=== PATIENT | female | born 1975 | race African-American/Black ===

== ENCOUNTER 2017-03-18 14:41 | Emergency (ER) | payer OTHER ==
[~2017-03-18] VITALS: Ht 147.3 cm; Wt 90.7 kg
[~2017-03-18 14:41] MED LIST: CALCIUM + D3 E1 EACH PO; CALCIUM 500 MG1 EACH PO; CALCIUM500 M4 PO; ENDOCET 5-3251 EACH PO; FIORICET,ESG1 TABLET PO; HYDROCODON-ACE1 EAC7 PO; IBUPROFEN800 MG PO; IRON325 M1 PO; LABETALOL HCL100 MG PO; MOTRIN600 MG PO; MOTRIN800 MG PO; Motrin PO; PRENATAL FORMU1 EAC3 PO; PRENATAL TABLE1 EAC3 PO; PREPARATION H C51 G1 PR; TORADOL10 MG PO; TRANDATE100 MG PO; VICODIN,LORT1 TABLET PO; ZOFRAN4 MG PO
[2017-03-18 16:52] LABS: HEMATOCRIT 33.8 % (36.0-46.0); MCH 25.7 PG (29.0-34.0); MCHC 33.1 G/DL (30.0-36.0); MCV 77.5 FL (83-99); MEAN PLAT.VOLUME 10.7 uM^3 (9.5-12.4); NRBC (%) 0.2 /100 WBC (0-0); PLATELET COUNT 243 K/uL (156-360); RBC DIS.WIDTH-CV 14.3 % (11.8-14.6); RED BLOOD COUNT 4.36 M/uL (3.80-5.20); WHITE BLOOD COUNT 9.3 K/uL (4.1-10.2)
[2017-03-18 17:03] LABS: CHLORIDE 107 mEq/L (99-109); POTASSIUM 3.3 mEq/L (3.7-5.4); SODIUM 138 mEq/L (136-147)
[2017-03-18 17:06] LABS: GLUCOSE 114 mg/dL (70-99)
[2017-03-18 17:07] LABS: ANION GAP 7 MEQ/L (2-14); TOTAL BILIRUBIN 0.3 mg/dL (0.0-1.0)
[2017-03-18 17:08] LABS: SERUM ETHYL ALCOHOL < 10 mg/dL
[2017-03-18 17:09] LABS: ALKALINE PHOSPHATASE 92 IU/L (3-129); GFR ESTIMATE (CALCULATED) > 59 mL/min/
[2017-03-18 17:10] LABS: UREA NITROGEN (BUN) 6 mg/dL (9-23)
[2017-03-18 17:18] LABS: QUANTITATIVE HCG 2656.3 MIU/ML
[2017-03-18 17:19] LABS: TROP-I INTERPRETATION NEGATIVE; TROPONIN-I < 0.01 ng/mL (0.0-0.30)
[2017-03-18 18:27] LABS: AMPHETAMINE NEGATIVE (500 ng/mL); BARBITURATES NEGATIVE (200 ng/mL); BENZODIAZEPINES NEGATIVE (150 ng/mL); COCAINE NEGATIVE (150 ng/mL); INTERNAL CONTROLS VALID? YES; METHADONE NEGATIVE (200 ng/mL); METHAMPHETAMINE NEGATIVE (500 ng/mL); OPIATES (MORPHINE) NEGATIVE (100 ng/mL); OXYCODONE NEGATIVE (100 ng/mL); PHENCYCLIDINE NEGATIVE (25 ng/mL); PROPOXYPHENE NEGATIVE (300 ng/mL); THC CANNABINOIDS NEGATIVE (50 ng/mL); TRICYCLIC ANTIDEPRESSANTS NEGATIVE (300 ng/mL)
[2017-03-18] MEDS ORDERED: REGLAN10 MG PO (19:10)
[2017-03-18] MEDS ORDERED: TYLENOL REGULA325 MG PO (19:10)
[2017-03-18 19:58] VITALS: BP 149/67
== END 2017-03-18 19:58 | disposition home or self-care (01) ==
LOC: EME 14:41
PROVIDERS: Emergency Medicine
DX: O99.351 Diseases of the nervous system complicating pregnancy, first trimester (principal); G43.009 Migraine without aura, not intractable, without status migrainosus; O10.011 Pre-existing essential hypertension complicating pregnancy, first trimester; O99.511 Diseases of the respiratory system complicating pregnancy, first trimester; J32.3 Chronic sphenoidal sinusitis; O99.341 Other mental disorders complicating pregnancy, first trimester; F32.9 Major depressive disorder, single episode, unspecified; Z3A.00 Weeks of gestation of pregnancy not specified
CPT/HCPCS: 70496; 80053; 84443; 84484; 84702; 85027; 90839; 93005; 99281; 99285; G0480; J1200; J1885; J2765; J7030

== ENCOUNTER 2017-10-05 16:23 | Outpatient (CLI) | payer OTHER ==
[~2017-10-05] VITALS: Ht 149.9 cm; Wt 82.0 kg
[~2017-10-05 16:23] MED LIST changes: +REGLAN10 MG PO; +TYLENOL REGULA325 MG PO
[2017-10-05] MEDS ORDERED: LABETALOL HCL200 MG PO (16:59)
[2017-10-05] MEDS ORDERED: ASPIR 8181 M1 PO (17:00)
[2017-10-05] MEDS ORDERED: LAMICTAL25 MG PO (17:01)
[2017-10-05] MEDS ORDERED: PAROXETINE HCL10 MG PO (17:02)
[2017-10-05 17:05] VITALS: BP 164/95
[2017-10-05 17:22] VITALS: BP 110/55
[2017-10-05 17:37] VITALS: BP 130/64
[2017-10-05 18:21] LABS: BASOPHIL (%) 0.3 % (0-1); EOSINOPHIL (%) 2.4 % (0-5); EOSINOPHIL COUNT 0.2 K/uL (0-0.3); HEMATOCRIT 28.9 % (36.0-46.0); HEMOGLOBIN 9.9 G/DL (11.9-15.5); IMMATURE GRANULOCYTE (%) 0.8 % (0.0-0.7); LYMPHOCYTE (%) 26.2 % (15-42); LYMPHOCYTE COUNT 2.3 K/uL (1.0-2.8); MCHC 34.3 G/DL (30.0-36.0); MCV 81.6 FL (83-99); MONOCYTE (%) 7.2 % (3-12); MONOCYTE COUNT 0.6 K/uL (0-0.8); NEUTROPHIL (%) 63.1 % (45-76); NEUTROPHIL COUNT 5.6 K/uL (1.8-6.4); PLATELET COUNT 174 K/uL (156-360); RBC DIS.WIDTH-CV 14.4 % (11.8-14.6); RBC DIS.WIDTH-SD 41.8 % (39-53); RED BLOOD COUNT 3.54 M/uL (3.80-5.20); WHITE BLOOD COUNT 8.8 K/uL (4.1-10.2)
[2017-10-05 18:25] LABS: APPEARANCE CLEAR ((CLEAR)); BILIRUBIN NEGATIVE; BLOOD NEGATIVE; COLOR YELLOW ((YELLOW)); GLUCOSE (STRIP) NEGATIVE; KETONES 5; LEUKOCYTES NEGATIVE; NITRITE NEGATIVE; PROTEIN (STRIP) 30; SPECIFIC GRAVITY 1.019 (1.000-1.030); UCUL ADDED? NO
[2017-10-05 18:43] LABS: ALBUMIN 3.5 G/DL (3.2-4.8); ALKALINE PHOSPHATASE 141 IU/L (3-129); ALT (GPT) 8 IU/L (3-49); AST (GOT) 14 IU/L (2-34); CHLORIDE 105 MEQ/L (99-109); CREATININE 0.5 MG/DL (0.6-1.3); GFR ESTIMATE (CALCULATED) > 59 mL/min/; GLUCOSE 77 mg/dL (70-99); POTASSIUM 3.7 MEQ/L (3.7-5.4); SODIUM 138 MEQ/L (136-147); TOTAL BILIRUBIN 0.6 MG/DL (0.0-1.0); TOTAL PROTEIN 6.2 G/DL (6.4-8.3); UREA NITROGEN (BUN) 5 mg/dL (9-23); URIC ACID 5.7 mg/dL (3.1-9.2)
[2017-10-05 18:44] LABS: UR CREATININE CONCENTRATION 185.5 MG/DL
[2017-10-05 19:42] VITALS: BP 138/82
[2017-10-05 23:52] VITALS: BP 132/77
[2017-10-06 03:39] VITALS: BP 133/62
[2017-10-06 07:10] VITALS: BP 134/75
[2017-10-06 11:03] VITALS: BP 127/69
[2017-10-06 13:43] VITALS: BP 117/62
== END 2017-10-06 17:30 | disposition home or self-care (01) ==
LOC: LDRP-OP 16:23 → 2WEST 16:25 → LDRP-OP 12-20 15:20
PROVIDERS: Advanced Practice Midwife
DX: O16.3 Unspecified maternal hypertension, third trimester (principal); O41.03X0 Oligohydramnios, third trimester, not applicable or unspecified; Z3A.33 33 weeks gestation of pregnancy; O34.219 Maternal care for unspecified type scar from previous cesarean delivery; O09.523 Supervision of elderly multigravida, third trimester; O99.343 Other mental disorders complicating pregnancy, third trimester; F31.9 Bipolar disorder, unspecified; O99.013 Anemia complicating pregnancy, third trimester; D64.9 Anemia, unspecified
CPT/HCPCS: 59025; 76818; 80053; 81003; 82570; 84156; 84550; 85025; G0378; J0702; J7120

== ENCOUNTER 2017-10-30 08:38 | Inpatient (IN) | payer OTHER ==
[~2017-10-30] VITALS: Ht 152.4 cm; Wt 83.9 kg
[2017-10-30] VITALS (8 sets, daily range): BP systolic 128–164; BP diastolic 67–89
[~2017-10-30 08:38] MED LIST changes: +ASPIR 8181 M1 PO; +LABETALOL HCL200 MG PO; +LAMICTAL25 MG PO; +PAROXETINE HCL10 MG PO
[2017-10-30 09:30] LABS: BASOPHIL (%) 0.4 % (0-1); EOSINOPHIL (%) 4.5 % (0-5); EOSINOPHIL COUNT 0.3 K/uL (0-0.3); HEMATOCRIT 27.8 % (36.0-46.0); HEMOGLOBIN 9.9 G/DL (11.9-15.5); IMMATURE GRANULOCYTE (%) 0.9 % (0.0-0.7); LYMPHOCYTE (%) 24.2 % (15-42); LYMPHOCYTE COUNT 1.8 K/uL (1.0-2.8); MCH 28.2 PG (29.0-34.0); MCHC 35.6 G/DL (30.0-36.0); MCV 79.2 FL (83-99); MONOCYTE (%) 6.9 % (3-12); MONOCYTE COUNT 0.5 K/uL (0-0.8); NEUTROPHIL (%) 63.1 % (45-76); NEUTROPHIL COUNT 4.8 K/uL (1.8-6.4); PLATELET COUNT 159 K/uL (156-360); RBC DIS.WIDTH-CV 14.1 % (11.8-14.6); RBC DIS.WIDTH-SD 40.2 % (39-53); RED BLOOD COUNT 3.51 M/uL (3.80-5.20); WHITE BLOOD COUNT 7.6 K/uL (4.1-10.2)
[2017-10-30 11:08] LABS: AMPHETAMINE NEGATIVE (500 ng/mL); BARBITURATES NEGATIVE (200 ng/mL); BENZODIAZEPINES NEGATIVE (150 ng/mL); BUPRENORPHINE NEGATIVE (10 ng/mL); COCAINE NEGATIVE (150 ng/mL); METHADONE NEGATIVE (200 ng/mL); METHAMPHETAMINE NEGATIVE (500 ng/mL); OPIATES (MORPHINE) NEGATIVE (100 ng/mL); OXYCODONE NEGATIVE (100 ng/mL); PHENCYCLIDINE NEGATIVE (25 ng/mL); PROPOXYPHENE NEGATIVE (300 ng/mL); THC CANNABINOIDS NEGATIVE (50 ng/mL); TRICYCLIC ANTIDEPRESSANTS NEGATIVE (300 ng/mL)
[2017-10-31 03:10] VITALS: BP 119/67
[2017-10-31 04:41] LABS: BASOPHIL (%) 0.2 % (0-1); EOSINOPHIL (%) 0.5 % (0-5); EOSINOPHIL COUNT 0.1 K/uL (0-0.3); HEMATOCRIT 25.6 % (36.0-46.0); HEMOGLOBIN 9.3 G/DL (11.9-15.5); IMMATURE GRANULOCYTE (%) 0.7 % (0.0-0.7); LYMPHOCYTE (%) 23.1 % (15-42); LYMPHOCYTE COUNT 2.7 K/uL (1.0-2.8); MCH 28.6 PG (29.0-34.0); MCHC 36.3 G/DL (30.0-36.0); MCV 78.8 FL (83-99); MONOCYTE (%) 7.4 % (3-12); MONOCYTE COUNT 0.9 K/uL (0-0.8); NEUTROPHIL (%) 68.1 % (45-76); PLATELET COUNT 193 K/uL (156-360); RBC DIS.WIDTH-CV 13.8 % (11.8-14.6); RBC DIS.WIDTH-SD 39.3 % (39-53); RED BLOOD COUNT 3.25 M/uL (3.80-5.20); WHITE BLOOD COUNT 11.7 K/uL (4.1-10.2)
[2017-10-31 11:18] VITALS: BP 138/76
[2017-10-31 19:00] VITALS: BP 126/74
[2017-10-31 23:00] VITALS: BP 128/68
[2017-11-01 06:40] VITALS: BP 137/80
[2017-11-01 10:50] VITALS: BP 130/72
[2017-11-01 14:40] VITALS: BP 109/60
[2017-11-02 00:35] VITALS: BP 144/86
[2017-11-02 03:17] VITALS: BP 141/84
[2017-11-02 07:15] VITALS: BP 148/81
[2017-11-02 16:21] VITALS: BP 167/79
[2017-11-02 19:19] VITALS: BP 151/74
[2017-11-02 21:41] VITALS: BP 187/91
[2017-11-03] VITALS (21 sets, daily range): BP systolic 92–192; BP diastolic 54–82
[2017-11-03 10:15] LABS: HEMATOCRIT 26.8 % (36.0-46.0); HEMOGLOBIN 9.1 G/DL (11.9-15.5); MCH 27.9 PG (29.0-34.0); MCV 82.2 FL (83-99); PLATELET COUNT 196 K/uL (156-360); RBC DIS.WIDTH-CV 14.3 % (11.8-14.6); RBC DIS.WIDTH-SD 41.9 % (39-53); RED BLOOD COUNT 3.26 M/uL (3.80-5.20); WHITE BLOOD COUNT 10.3 K/uL (4.1-10.2)
[2017-11-03 10:30] LABS: CHLORIDE 106 MEQ/L (99-109); POTASSIUM 3.8 MEQ/L (3.7-5.4); SODIUM 140 MEQ/L (136-147); TOTAL BILIRUBIN 0.4 MG/DL (0.0-1.0)
[2017-11-03 10:36] LABS: ALKALINE PHOSPHATASE 155 IU/L (3-129); ALT (GPT) 16 IU/L (3-49); AST (GOT) 18 IU/L (2-34); CREATININE 0.6 MG/DL (0.6-1.3); GFR ESTIMATE (CALCULATED) > 59 mL/min/; GLUCOSE 102 mg/dL (70-99); TOTAL PROTEIN 5.5 G/DL (6.4-8.3); UREA NITROGEN (BUN) 7 mg/dL (9-23)
[2017-11-04] VITALS (14 sets, daily range): BP systolic 100–140; BP diastolic 55–79
[2017-11-05 04:22] VITALS: BP 99/58
[2017-11-05 08:31] VITALS: BP 131/77
[2017-11-05] MEDS ORDERED: LABETALOL HCL200 MG PO (09:17)
[2017-11-05] MEDS ORDERED: ENDOCET 5-3251 EACH PO (09:17)
[2017-11-05] MEDS ORDERED: IBUPROFEN800 MG PO (09:17)
[2017-11-05] MEDS ORDERED: NIFEDIPINE ER30 MG PO (09:17)
[2017-11-05 11:46] VITALS: BP 118/74
== END 2017-11-05 12:46 | disposition home or self-care (01) | DRG 765 ==
LOC: 2WEST 08:38 → 2SOUTH 12:08 → 2WEST 11-05 12:46
PROVIDERS: Obstetrics & Gynecology; Obstetrics & Gynecology Obstetrics
PROC: 10D00Z1 Extraction of Products of Conception, Low, Open Approach (ICD-10-PCS; principal; 2017-10-30)
DX: O34.211 Maternal care for low transverse scar from previous cesarean delivery (principal); O36.5930 Maternal care for other known or suspected poor fetal growth, third trimester, not applicable or unspecified; O10.92 Unspecified pre-existing hypertension complicating childbirth; O99.02 Anemia complicating childbirth; D62 Acute posthemorrhagic anemia; D50.9 Iron deficiency anemia, unspecified; O41.03X0 Oligohydramnios, third trimester, not applicable or unspecified; R51 Headache; H53.8 Other visual disturbances; I95.9 Hypotension, unspecified; Z3A.37 37 weeks gestation of pregnancy; Z37.0 Single live birth; O99.343 Other mental disorders complicating pregnancy, third trimester; O99.214 Obesity complicating childbirth; E66.9 Obesity, unspecified; F32.9 Major depressive disorder, single episode, unspecified
CPT/HCPCS: 80053; 85025; 85027; 86850; 86900; 86901; 93005; J0360; J0690; J1050; J1100; J1170; J1885; J2210; J2274; J2405; J2550; J2590; J2765; J3010; J3475; J7120; S0020